=== PATIENT | male | born 1995 | race Hispanic/Latino ===

== ENCOUNTER 2022-01-15 19:31 | Emergency (ER) | payer SELFPAY ==
[2022-01-15] MEDS ORDERED: Ibuprofen 800 MG TAB ONE (21:12)
== END 2022-01-15 21:14 | disposition home or self-care (01) ==
LOC: ERS 19:31
DX: H60.502 Unspecified acute noninfective otitis externa, left ear (principal); R51.9 Headache, unspecified
CPT/HCPCS: 99282